=== PATIENT | male | born 1960 | race American Indian/Alaskan Native ===

== ENCOUNTER 2019-12-31 22:03 | Emergency (ER) | payer MEDICAID, OTHER ==
[2019-12-31] MEDS ORDERED: traMADol 50 MG Tab PO ONE (22:04)
--- NOTE | 2019-12-31 22:53 | EDM.PDOC ---
ED HPI GENERAL MEDICAL PROBLEM - General Chief Complaint: Upper Extremity Injury/Pain Stated Complaint: SHOULDER PAIN Time Seen by Provider: 12/31/19 22:15 Source of Information: Reports: Patient History Limitations: Reports: No Limitations - History of Present Illness INITIAL COMMENTS - FREE TEXT/NARRATIVE: Sg has been doing yardwork for the past 3 days, and this afternoon experienced a "pop" in the L shoulder, followed by pain and stiffness. There is pain with movements, especially overhead, without reported weakness in the forearm or hand. There is no loss of sensation. He has tried no meds. - Related Data Allergies Allergy/AdvReac Type Severity Reaction Status Date / Time lisinopril Allergy Unknown Cannot Verified 04/24/15 16:04 Remember Home Meds: Home Meds Baclofen 10 mg PO Q6H PRN 04/24/15 [History] Gabapentin [Neurontin] 600 mg PO BID 04/24/15 [History] Naproxen 500 mg PO BID 04/24/15 [History] Aspirin [Adult Low Dose Aspirin EC] 81 mg PO DAILY #90 tablet. 04/25/15 [Rx] Famotidine [Pepcid] 20 mg PO BID #30 tablet 04/25/15 [Rx] Levothyroxine 0.05 mg PO DAILY 30 Days tablet 04/25/15 [Rx] Losartan [Cozaar] 100 mg PO DAILY #30 tablet 04/25/15 [Rx] Metoprolol Tartrate 50 mg PO DAILY #30 tablet 04/25/15 [Rx] Omeprazole [Prilosec] 20 mg PO DAILY #30 capsule. 04/25/15 [Rx] amLODIPine [Norvasc] 10 mg PO DAILY #30 tablet 04/25/15 [Rx] Past Medical History Other Musculoskeletal History: bilat knee pain Other Psychiatric History: hx ETOH abuse, has been hospitalized for same. Social & Family History - Living Situation & Occupation Living situation: Reports: , with Family Occupation: Employed Review of Systems - Review of Systems Review Of Systems: Comprehensive ROS is negative, except as noted in HPI. ED EXAM, GENERAL - Physical Exam Exam: See Below Exam Limited By: No Limitations General Appearance: Alert, WD/WN, Mild Distress Head: Atraumatic, Normocephalic Neck: Normal Inspection, Supple, Non-Tender, Full Range of Motion Respiratory/Chest: Lungs Clear, Chest Non-Tender Cardiovascular: Regular Rate, Rhythm, No Murmur Back Exam: Normal Inspection Extremities: Arm Pain (L shoulder: no visible deformity, no AC joint tenderness ; pain with attempts at abduction and forward flexion; impingement sign positive ; no deformity of the arm, elbow, wrist or hand; ) Neurological: Alert, Oriented, CN II-XII Intact, Normal Cognition, No Motor/ Sensory Deficits Psychiatric: Normal Affect, Normal Mood Skin Exam: Warm, Dry, Intact, Normal Color Lymphatic: No Adenopathy Course - Vital Signs Text/Narrative:: Suspected rotator cuff diisorder with possible musculotendonous detachment. He will need further assessment including an MRI. Departure - Departure Time of Disposition: 22:35 Disposition: Home, Self-Care 01 Condition: Fair Clinical Impression: Rotator cuff impingement syndrome of left shoulder - Discharge Information *PRESCRIPTION DRUG MONITORING PROGRAM REVIEWED*: Not Applicable *COPY OF PRESCRIPTION DRUG MONITORING REPORT IN PATIENT FIDE: Not Applicable Referrals: Bruna Wang PA-C [Primary Care Provider] - - Problem List & Annotations (1) Rotator cuff impingement syndrome of left shoulder SNOMED Code(s): 537896850 Code(s): M75.42 - IMPINGEMENT SYNDROME OF LEFT SHOULDER Status: Acute Current Visit: Yes - Problem List Review Problem List Initiated/Reviewed/Updated: Yes - Assessment/Plan Plan: I suggested follow up with PCP or orthopedist and MRI of L shoulder to weigh options for treatment. He was dispensed a small supply of Tramadol 50 mg tabs # 8 for pain managment.
[2019-12-31 22:55] VITALS: BP 126/90
== END 2019-12-31 22:45 | disposition home or self-care (01) ==
LOC: FB.ED 22:03
DX: M75.102 Unspecified rotator cuff tear or rupture of left shoulder, not specified as traumatic (principal); Z88.8 Allergy status to other drugs, medicaments and biological substances; Z79.82 Long term (current) use of aspirin; Z79.899 Other long term (current) drug therapy
CPT/HCPCS: 99283; A9270

== ENCOUNTER 2020-01-02 10:21 | Emergency (ER) | payer MEDICAID, OTHER ==
[2020-01-02] MEDS ORDERED: Ketorolac 30 MG/ML SDV IM ONE (10:39)
--- NOTE | 2020-01-02 10:45 | EDM.PDOC ---
ED HPI GENERAL MEDICAL PROBLEM - General Chief Complaint: Upper Extremity Injury/Pain Stated Complaint: L SHOULDER PAIN Time Seen by Provider: 01/02/20 10:40 Source of Information: Reports: Patient History Limitations: Reports: No Limitations - History of Present Illness INITIAL COMMENTS - FREE TEXT/NARRATIVE: Presents with persistent left shoulder pain after injuring it @1 week ago. Patient states he developed pain to the shoulder after lifting a heavy box. Was treated at [facility] ED on 12/31/19 for the same issue, stated at that time he developed pain after doing yard work. He was prescribed Tramadol 50mg #4 tabs , which did improve symptoms, but he has run out of the medication. Pain is exacerbated with shoulder movement, and radiates to left upper arm. He denies numbness, tingling, or weakness. Duration: Week(s): (1) Location: Reports: Upper Extremity, Left Quality: Reports: Dull Severity: Moderate Worsens with: Reports: Movement Associated Symptoms: Reports: No Other Symptoms left shoulder Pain Score (Numeric/FACES): 10 - Related Data Allergies Allergy/AdvReac Type Severity Reaction Status Date / Time lisinopril Allergy Unknown Cannot Verified 12/31/19 23:38 Remember Home Meds: Home Meds Losartan [Cozaar] 100 mg PO DAILY #30 tablet 04/25/15 [Rx] Omeprazole [Prilosec] 20 mg PO DAILY #30 capsule. 04/25/15 [Rx] amLODIPine [Norvasc] 10 mg PO DAILY #30 tablet 04/25/15 [Rx] Apixaban [Eliquis] 5 mg PO DAILY 12/31/19 [History] Metoprolol Tartrate 50 mg PO BID 12/31/19 [History] traMADol [Ultram] 50 - 100 mg PO Q6H PRN #20 tab 01/02/20 [Rx] Past Medical History Cardiovascular History: Reports: CAD, Hypertension Musculoskeletal History: Reports: Arthritis Other Musculoskeletal History: bilat knee pain Other Psychiatric History: hx ETOH abuse, has been hospitalized for same. - Past Surgical History Cardiovascular Surgical History: Reports: Coronary Artery Bypass Social & Family History - Living Situation & Occupation Living situation: Reports: , with Family Occupation: Employed Review of Systems - Review of Systems Review Of Systems: Comprehensive ROS is negative, except as noted in HPI. ED EXAM, GENERAL - Physical Exam Exam: See Below Exam Limited By: No Limitations General Appearance: Alert, WD/WN, No Apparent Distress Throat/Mouth: No Airway Compromise Head: Atraumatic, Normocephalic Neck: Full Range of Motion Respiratory/Chest: No Respiratory Distress Peripheral Pulses: 2+: Radial (L) Back Exam: Full Range of Motion Extremities: Other (Left shoulder tenderness, no deformity, increased pain with ROM) Neurological: Alert, Normal Cognition, No Motor/Sensory Deficits Psychiatric: Normal Affect, Normal Mood Skin Exam: Warm, Dry, Intact Course - Vital Signs Last Recorded V/S: Last Vital Signs Temp 35.8 C L 01/02/20 10:30 Pulse 53 L 01/02/20 10:30 Resp 16 01/02/20 10:30 BP 144/60 H 01/02/20 10:30 Pulse Ox 100 01/02/20 10:30 - Orders/Labs/Meds Orders: Active Orders 24 hr Category Date Time Status Shoulder Comp Lt [CR] Stat Exams 01/02/20 10:38 Taken Meds: Medications Discontinued Medications Generic Name Dose Route Start Last Admin Trade Name Freq PRN Reason Stop Dose Admin Ketorolac Tromethamine 30 mg 01/02/20 10:39 01/02/20 10:42 Toradol IM 01/02/20 10:40 30 mg ONETIME ONE Administration - Radiology Interpretation Free Text/Narrative:: Left shoulder xray: No acute fracture or dislocation of the left humeral head. Moderate irregularity involving the inferior aspect of glenoid could be related to degenerative change but I cannot exclude the possibility of age- indeterminate deformity/fracture in this region. I would favor this finding being chronic. No definite acute fracture left shoulder. Multiple small intra- articular loose bodies involving the left shoulder. Soft tissue swelling left shoulder. ([facility], Dr. Marks) Departure - Departure Time of Disposition: 11:30 Disposition: Home, Self-Care 01 Condition: Good Clinical Impression: Left shoulder strain Qualifiers: Encounter type: subsequent encounter Qualified Code(s): S46.912D - Strain of unspecified muscle, fascia and tendon at shoulder and upper arm level, left arm , subsequent encounter - Discharge Information *PRESCRIPTION DRUG MONITORING PROGRAM REVIEWED*: Yes *COPY OF PRESCRIPTION DRUG MONITORING REPORT IN PATIENT FIDE: No Prescriptions: traMADol [Ultram] 50 - 100 mg PO Q6H PRN #20 tab PRN Reason: Pain Instructions: Shoulder Sprain Referrals: Bruna Wang PA-C [Primary Care Provider] - 2 Days Forms: ED Department Discharge Additional Instructions: Follow up with your primary physician in 2 days. Fill the prescription for Tramadol and take as directed. Return to the ER if you believe you are having a medical emergency. Sepsis Event Note - Evaluation Sepsis Screening Result: No Definite Risk - Focused Exam Vital Signs: Vital Signs Temp Pulse Resp BP Pulse Ox 01/02/20 10:30 35.8 C L 53 L 16 144/60 H 100 Date Exam was Performed: 01/02/20 Time Exam was Performed: 11:27 - My Orders Last 24 Hours: My Active Orders 01/02/20 10:38 Shoulder Comp Lt [CR] Stat - Assessment/Plan Last 24 Hours: My Active Orders 01/02/20 10:38 Shoulder Comp Lt [CR] Stat
[2020-01-02 11:55] VITALS: BP 135/82; PULSE 66
== END 2020-01-02 11:45 | disposition home or self-care (01) ==
LOC: FB.ED 10:21
DX: S46.912D Strain of unspecified muscle, fascia and tendon at shoulder and upper arm level, left arm, subsequent encounter (principal); I10 Essential (primary) hypertension; I25.10 Atherosclerotic heart disease of native coronary artery without angina pectoris; M19.90 Unspecified osteoarthritis, unspecified site; Z95.1 Presence of aortocoronary bypass graft; Z79.899 Other long term (current) drug therapy; Z79.01 Long term (current) use of anticoagulants; Z88.8 Allergy status to other drugs, medicaments and biological substances; X50.0XXA Overexertion from strenuous movement or load, initial encounter
CPT/HCPCS: 73030; 96372; 99283; J1885

== ENCOUNTER 2021-03-02 06:33 | Day surgery (SDC) | payer OTHER ==
[2021-03-02] MEDS ORDERED: Lactated Ringers 1,000 ML IV ONE (06:34)
[2021-03-02] MEDS ORDERED: Sodium Chloride 0.9% 10 ML Syringe FLUSH PRN (06:45)
[2021-03-02] MEDS ORDERED: Albuterol/Ipratropium 3.0-0.5 MG/3 ML Neb Soln NEB ONE ×2 (06:45→07:00)
[2021-03-02] MEDS ORDERED: Sodium Chloride 0.9% 1,000 ML IV SCH (06:45)
--- NOTE | 2021-03-02 08:22 | PCM.HPR ---
H & P Addendum review - H & P Addendum Review Date of Original H & P: 02/23/21 Date Reviewed: 03/02/21 Time Reviewed: 08:02 Patient was Examined: No Changes
--- NOTE | 2021-03-02 08:45 | PCM.OPNOTE ---
- General Post-Op/Procedure Note Date of Surgery/Procedure: 03/02/21 Operative Procedure(s): EGD with Bx; Colonoscopy Findings: Gastritis; Normal Colon Pre Op Diagnosis: GERD, wt loss, hx polyps Post-Op Diagnosis: Same Anesthesia Technique: MAC Primary Surgeon: Eduardo Soliz Complications: None Condition: Good
[2021-03-02] MEDS ORDERED: Levalbuterol HCl 1.25 MG/3 ML Neb NEB ONE (09:11)
[2021-03-02 10:34] VITALS: BP 146/92; PULSE 78
--- NOTE | 2021-03-02 11:42 | OR ---
DATE OF OPERATION: 03/02/2021 SURGEON: Eduardo Soliz MD PREOPERATIVE DIAGNOSES: 1. Gastroesophageal reflux disease. 2. Weight loss. 3. Need for colon screening. POSTOPERATIVE DIAGNOSES: 1. Gastritis of the antrum. 2. Normal colonoscopy. PROCEDURES: 1. Esophagogastroduodenoscopy with biopsy. 2. Colonoscopy. ANESTHESIA: IV sedation. DESCRIPTION OF PROCEDURE: The patient was brought to the procedure room, where he was placed on his left side and IV sedation administered. Oral bite block was placed and the upper endoscope advanced into the esophagus under direct vision without difficulty. Vocal cords were viewed and appeared normal. Scope was advanced to the third portion of the duodenum. Duodenum and pylorus were normal. Antrum has evidence of chronic gastritis with some old dark small areas of clot on the surface, but no active bleeding. I did take 2 biopsies from there and will check for Helicobacter pylori. The remaining body and fundus were normal. Retroflexion was normal. Squamocolumnar junction appears normal. Air was removed from the stomach and the scope withdrawn through the remaining esophagus, which appears normal. The patient tolerated this portion of the procedure well. Next, colonoscopy was performed after digital rectal exam was done, which was normal. Colonoscope was inserted and advanced through a poorly prepped colon with difficulty through the entire colon. I was able to identify the appendiceal lumen and light transilluminating in the right lower quadrant. Thick stool with solid was present throughout the entire colon. I was able to visualize well enough to make sure that no obstructing tumors, large polyps, or other gross abnormalities were present. Rectum was normal and retroflexion was normal. Air was removed and the scope withdrawn. The patient tolerated the procedure well and returned to Recovery in stable condition. The patient is currently on omeprazole. He should remain on this. He should undergo colon screening again in 10 years. If H pylori is present, this should be treated. /[id number] PING/DIANA
[2021-03-02] MEDS ORDERED: Lidocaine 2% 100 MG/5 ML Syringe IVPUSH ONE (13:00)
[2021-03-02] MEDS ORDERED: Propofol 200 MG/20 ML SDV IV ONE (13:00)
[2021-03-02] MEDS ORDERED: Glycopyrrolate 0.2 MG/ML 5 ML MDV IV ONE (13:00)
[2021-03-02] MEDS ORDERED: Dexamethasone 4 MG/ML 5 ML MDV IVPUSH ONE (13:00)
== END 2021-03-02 10:05 | disposition home or self-care (01) ==
LOC: FB.SDS 06:33
PROVIDERS: ATTEND Surgery
DX: Z12.11 Encounter for screening for malignant neoplasm of colon (principal); K29.50 Unspecified chronic gastritis without bleeding; B96.81 Helicobacter pylori [H. pylori] as the cause of diseases classified elsewhere; K21.9 Gastro-esophageal reflux disease without esophagitis; I10 Essential (primary) hypertension; I25.10 Atherosclerotic heart disease of native coronary artery without angina pectoris; I48.91 Unspecified atrial fibrillation; F17.210 Nicotine dependence, cigarettes, uncomplicated; Z95.1 Presence of aortocoronary bypass graft; Z79.899 Other long term (current) drug therapy
CPT/HCPCS: 00813; 43239; 45378; 88305; 88342; 94640; J1100; J2704; J3490; J7030; J7120; J7612; J7620-GY

== ENCOUNTER 2022-10-27 23:22 | Emergency (ER) | payer OTHER ==
[2022-10-27] MEDS ORDERED: methylPREDNISolone Sodium Succinate 125 MG/2 ML SDV IVPUSH ONE (23:50)
[2022-10-27] MEDS ORDERED: Albuterol/Ipratropium 3.0-0.5 MG/3 ML Neb Soln NEB ONE (23:50)
[2022-10-27] MEDS ORDERED: Sodium Chloride 0.9% 10 ML Syringe FLUSH PRN (23:50)
[2022-10-28] LABS: ESTIMATED GFR 101 mL/min (>60)
[2022-10-28 00:16] LABS: BASE EXCESS VENOUS,POC 3 mmol/L (-2 - 3+); PCO2 VENOUS,POC 54 mmHg (41-51); PH VENOUS,POC 7.36 pH Units (7.32-7.43)
[2022-10-28 00:20] LABS: CORONAVIRUS COVID-19 NAA POSITIVE (NEGATIVE)
[2022-10-28] MEDS ORDERED: cefTRIAXone 2 GM Vial IVPUSH ONE (02:23)
[2022-10-28] MEDS ORDERED: Magnesium Sulfate/Water 2 GM in Premix Bag 1 BAG IV ONE (02:44)
[2022-10-28 08:59] VITALS: BP 185/110; PULSE 70
== END 2022-10-28 03:25 | disposition home or self-care (01) ==
LOC: FB.ED 23:22
DX: U07.1 COVID-19 (principal); J44.1 Chronic obstructive pulmonary disease with (acute) exacerbation; I48.91 Unspecified atrial fibrillation; I25.10 Atherosclerotic heart disease of native coronary artery without angina pectoris; I10 Essential (primary) hypertension; K21.9 Gastro-esophageal reflux disease without esophagitis; Z88.8 Allergy status to other drugs, medicaments and biological substances; Z79.01 Long term (current) use of anticoagulants; Z79.899 Other long term (current) drug therapy; Z72.0 Tobacco use
CPT/HCPCS: 0241U; 36415; 71045; 80053; 81001; 83735; 83880; 84484; 85025; 86140; 94640; 96365; 96375; 99285-25; J0696; J2930; J3475; J3490; J7620

== ENCOUNTER 2024-07-02 19:53 | Emergency (ER) | payer OTHER ==
[2024-07-02] MEDS ORDERED: Albuterol/Ipratropium 3.0-0.5 MG/3 ML Neb Soln NEB ONE (19:57)
[2024-07-02] MEDS: Albuterol/Ipratropium 3.0-0.5 MG/3 ML Neb Soln ONE (20:41)
[2024-07-02] MEDS: methylPREDNISolone Sodium Succinate 125 MG/2 ML SDV IM ONE (20:46)
[2024-07-02 22:09] VITALS: BP 145/99; PULSE 78
== END 2024-07-02 21:45 | disposition home or self-care (01) ==
LOC: FB.ED 19:53
DX: J44.1 Chronic obstructive pulmonary disease with (acute) exacerbation (principal); I48.91 Unspecified atrial fibrillation; I10 Essential (primary) hypertension; I25.10 Atherosclerotic heart disease of native coronary artery without angina pectoris; I25.2 Old myocardial infarction; K21.9 Gastro-esophageal reflux disease without esophagitis; F17.210 Nicotine dependence, cigarettes, uncomplicated; Z79.899 Other long term (current) drug therapy; Z88.8 Allergy status to other drugs, medicaments and biological substances
CPT/HCPCS: 94640; 96372; 99284; J2919; J7620

== ENCOUNTER 2025-05-22 10:30 | Emergency (ER) | payer OTHER ==
[2025-05-22 10:46] VITALS: BP 142/88; PULSE 110
== END 2025-05-22 11:25 | disposition home or self-care (01) ==
LOC: FB.ED 10:30
DX: K04.7 Periapical abscess without sinus (principal); I10 Essential (primary) hypertension; I25.2 Old myocardial infarction; I25.10 Atherosclerotic heart disease of native coronary artery without angina pectoris; J44.9 Chronic obstructive pulmonary disease, unspecified; M19.90 Unspecified osteoarthritis, unspecified site; K21.9 Gastro-esophageal reflux disease without esophagitis; F17.200 Nicotine dependence, unspecified, uncomplicated; Z79.899 Other long term (current) drug therapy
CPT/HCPCS: 96372; 99283; J0696